=== PATIENT | male | born 1980 | race Caucasian/White ===

== ENCOUNTER → 2016-12-20 | Outpatient (CLI) | payer OTHER ==
[~2016-12-20] MED LIST: ALBU1AER9 INH; ALBUAER; CHOL1CAP57 PO; CHOL2000 PO; CITA10TA8 PO; CITA20TA9 PO; CLIN150C PO; CYAN1TAB4 SL; LEVE500T PO; LEVE500T13 PO; MOME6000; NSNN50; SILD1TAB11 PO
[2016-12-20 16:08] LABS: BLOOD UREA NITROGEN 14 mg/dl (7-18); CALCIUM 8.8 mg/dl (8.5-10.1); CARBON DIOXIDE 27 mmol/L (21-32); CHLORIDE 108 mmol/L (98-107); CREATININE 0.72 mg/dl (0.60-1.40); GLUCOSE 93 mg/dl (70-99); POTASSIUM 4.1 mmol/L (3.5-5.1); SODIUM 141 mmol/L (136-145)
== END | disposition home or self-care (01) ==
LOC: C.LAB 10:48
PROVIDERS: ATTEND Urology
DX: N52.9 Male erectile dysfunction, unspecified (principal)

== ENCOUNTER 2017-02-08 13:47 | Emergency (ER) | payer OTHER ==
[~2017-02-08] VITALS: Ht 165.1 cm; Wt 83.0 kg
[~2017-02-08 13:47] MED LIST changes: -ALBUAER; -CHOL1CAP57 PO; -CITA20TA9 PO; -CLIN150C PO; -LEVE500T13 PO; -MOME6000; -SILD1TAB11 PO
[2017-02-08 13:51] VITALS: BP 132/86; TEMP 37; Ht 165.1 cm; Wt 83.0 kg
[2017-02-08] MEDS ORDERED: XYLOCAINE 1%/SOD BICARB 20 ML VIAL INFIL ONE (14:00)
--- NOTE | 2017-02-08 14:32 | EMERGENCY ROOM VISIT NOTE ---
History First contact with patient: 13:54 Chief Complaint: LACERATION/CUT (NON-SUTURE) Stated Complaint: CUT ON THE RIGHT PALM Nursing Triage Summary: pt here with lac to right palm of hand from a piece of metal from a deep freezer. full rom of hand. History of Present Illness The patient is a 36 year old male who presents to the Emergency Room with complaints of right hand laceration. The patient was helping his father move, lifting a chest freezer with wet hands. The freezer slipped through his hand, cutting the heel of his palm. The patient does report moderate bleeding from the wound. The patient is [id number]. He rates his discomfort a 5 out of 10. Tetanus immunization is up-to-date. Review of Systems 6 system review was performed and was negative except for pertinent positives and negatives as indicated in history of present illness Past Medical/Surgical History Medical Problems: (1) Acute hepatitis C (2) Bronchitis (3) Chronic duodenal ulcer (4) Depression (5) heart disease (6) Hernia repair (7) Pulmonary emphysema (8) Seizure Family History Cancer Diabetes mellitus Gallbladder disease Heart disease Hypertension Kidney disease Kidney stones Seizures Stroke Social History Smoking Status: Never Smoker Alcohol Use: none Marital Status: Housing Status: lives with family Occupation Status: unemployed Current/Historical Medications Scheduled Albuterol Sulfate (Proair Hfa), 2 PUFFS INH QID PRN Cholecalciferol (Vitamin D3), 2,000 INTERUNIT PO WEEKLY Citalopram Hydrobromide (Celexa), 10 MG PO DAILY Levetiractam (Levetiracetam), 500 MG PO DAILY Mometasone Furoate (Nasal) (Nasonex), 2 SPRAY NA DAILY Miscellaneous Medications Cyanocobalamin (B-12), 500 MCG SL Allergies Coded Allergies: Latex (Verified Allergy, Unknown, RASH, 04/02/16) Penicillins (Unverified Allergy, Unknown, SWELLING/HIVES, 04/02/16) Physical Exam Vital Signs Date Time Temp Pulse Resp B/P (MAP) Pulse Ox O2 Delivery O2 Flow Rate FiO2 02/08/17 13:51 37.0 90 16 132/86 98 Room Air Physical Exam CONSTITUTIONAL: Healthy and well nourished. Alert and oriented X 3 with positive affect. She does not appear in any acute distress. HEENT: Normocephalic, atraumatic. Pupils equal, round and reactive. NECK: Full active range of motion without discomfort. MUSCULOSKELETAL: Examination of the right hand shows a curvilinear 3 cm laceration across the base of the thenar eminence. No active bleeding noted on exam. The patient is able to flex and extend the fingers. Capillary refill of the fingers is less than 2 seconds. INTEGUMENTARY: No rash or other significant dermatologic conditions noted. NEUROLOGIC: Right hand and fingers are sensory intact. Medical Decision & Procedures Medications Administered Medications (Trade) Dose Ordered Sig/Ama Route Start Time Stop Time Status Last Admin Dose Admin Lidocaine HCl (Buffered Lidocaine 1% Inj) 20 ml ONE ONCE INFIL 02/08/17 14:00 02/08/17 14:01 DC 02/08/17 14:00 20 ML Procedure Laceration repair was performed under local anesthesia after receiving verbal consent from the patient. Using buffered 1% lidocaine without epinephrine, good local anesthesia was administered. The peripheral tissue was then cleansed with iodine, then the wound was copiously pressure irrigated with 100 mL of normal saline. Exploration of the wound show mild intrusion into the underlying subcutaneous space. It is noted that the patient had no sensory deficit of the thumb. The wound was then approximated using 4-0 nylon simple interrupted sutures. Bacitracin dressing was applied. ED Course Patient history and physical exam were performed. Nurse's notes were reviewed. Laceration repair was performed under local anesthesia. The patient was provided additional verbal and written wound care instructions. Ice and elevation for swelling and pain. Ibuprofen or Tylenol if needed for additional pain relief. Suture removal in 12-14 days, or seek reevaluation sooner for any signs of wound infection. The patient denied any pain at the time of discharge , voiced understanding of all discharge instructions, and was happy with plan of care. Medical Decision Impression Primary Impression: Laceration of right hand Departure Information Dispostion Home / Self-Care Forms HOME CARE DOCUMENTATION FORM, IMPORTANT VISIT INFORMATION Patient Instructions My [facility] Additional Instructions Keep wound clean and dry. Do not allow any crusting or dried blood to accumulate on sutures. If this occurs, use a 1:1 solution of hydrogen peroxide/ water on a Q-tip to clean the wound. Use an antibiotic ointment for 3-4 days, then let wound dry. Suture removal in 12-14 days. Return sooner for any signs of infection (increasing redness, swelling, drainage). Ice and elevate for swelling and pain. Ibuprofen 600 mg and/or Tylenol 1000 mg every 6 hrs as needed for pain. Problem Qualifiers Primary Impression: Laceration of right hand Encounter type: initial encounter Foreign body presence: without foreign body Qualified Codes: S61.411A - Laceration without foreign body of right hand , initial encounter
[2017-02-08] MEDS ORDERED: SILD1TAB11 PO (14:43)
[2017-02-08 14:58] VITALS: PULSE 89; O2SAT 100
== END 2017-02-08 14:59 | disposition home or self-care (01) ==
LOC: C.EDB 13:49 → C.EDD 14:59
DX: S61.411A Laceration without foreign body of right hand, initial encounter (principal); W45.8XXA Other foreign body or object entering through skin, initial encounter; Y93.E6 Activity, residential relocation; F32.9 Major depressive disorder, single episode, unspecified; Z80.9 Family history of malignant neoplasm, unspecified; Z83.3 Family history of diabetes mellitus; Z82.49 Family history of ischemic heart disease and other diseases of the circulatory system; Z84.1 Family history of disorders of kidney and ureter; Z82.0 Family history of epilepsy and other diseases of the nervous system; Z82.3 Family history of stroke; Z79.899 Other long term (current) drug therapy

== ENCOUNTER 2017-02-17 20:32 | Emergency (ER) | payer OTHER ==
[~2017-02-17] VITALS: Ht 165.1 cm; Wt 85.3 kg
[~2017-02-17 20:32] MED LIST changes: +SILD1TAB11 PO
[2017-02-17 20:39] VITALS: Ht 165.1 cm; Wt 85.3 kg
[2017-02-17] MEDS ORDERED: CHOL1CAP57 PO (21:24)
[2017-02-17] MEDS ORDERED: CITA20TA9 PO (21:27)
[2017-02-17] MEDS ORDERED: LEVE500T13 PO (21:30)
[2017-02-17] MEDS ORDERED: OXYCODONE HCL IR 5 MG TAB (IMMEDIATE RELEASE) PO STA (21:37)
[2017-02-17] MEDS ORDERED: CLINDAMYCIN HCL 150 MG CAP PO ONE ×2 (21:45)
[2017-02-17] MEDS ORDERED: OXYCODONE IR HOME PACK PO ONE (21:45)
[2017-02-17] MEDS ORDERED: CLIN150C PO (21:55)
[2017-02-17 22:15] VITALS: BP 120/85; PULSE 86; TEMP 37; O2SAT 97
--- NOTE | 2017-02-17 22:28 | EMERGENCY ROOM VISIT NOTE ---
History Report prepared by Est[place]: [place] Under the Supervision of: Dr. Gera Clinton M.D. First contact with patient: 21:26 Chief Complaint: WOUND INFECTION Stated Complaint: RIGHT HAND PAIN - SWELLING AND REDNESS Nursing Triage Summary: Pt reports he was here on February 08 and got stitches. Now site is red, painful and swollen. It started today. History of Present Illness The patient is a 36 year old male who presents to the Emergency Room with complaints of persistent right hand pain for the past 1 day. He rates his discomfort as a 5/10 in severity. Movement worsens his pain and he notes he can barely move his right thumb because of his discomfort. He reports he got stitches on February 08 here at the ED after lacerating his left palm while trying to move a boat in the rain. Today the site became red, swollen and painful. 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 The patient denies any previous history of skin infections or boils. Pt denies LOC, headache, fevers, chills, diaphoresis, chest pain, breathing difficulties, nausea, vomiting, numbness, weakness, lymphadenopathy, rash, or other complaints. 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 A total of six systems were reviewed and were otherwise negative. Past Medical & Surgical Medical Problems: (1) Acute hepatitis C (2) Bronchitis (3) Chronic duodenal ulcer (4) Depression (5) heart disease (6) Hernia repair (7) Pulmonary emphysema (8) Seizure Family History Cancer Diabetes mellitus Gallbladder disease Heart disease Hypertension Kidney disease Kidney stones Seizures Stroke Social History Smoking Status: Former Smoker Alcohol Use: none Drug Use: none Marital Status: Housing Status: lives with family Occupation Status: unemployed Current/Historical Medications Scheduled Albuterol Sulfate (Proair Hfa), 2 PUFFS INH QID PRN Cholecalciferol (Vitamin D3), 1,000 UNITS PO WK Citalopram Hydrobromide (Celexa), 30 MG PO DAILY Clindamycin Hcl (Cleocin), 150 MG PO QID Cyanocobalamin (B-12), 1,000 MCG SL QAM Levetiracetam (Keppra), 500 MG PO BID Sildenafil Citrate (Viagra), 1 TAB PO PRN Scheduled PRN Mometasone Furoate (Nasal) (Nasonex), 2 SPRAY NA DAILY PRN for CONGESTION Allergies Coded Allergies: Latex (Verified Allergy, Unknown, RASH, 04/02/16) Penicillins (Unverified Allergy, Unknown, SWELLING/HIVES, 04/02/16) Physical Exam Vital Signs Date Time Temp Pulse Resp B/P (MAP) Pulse Ox O2 Delivery O2 Flow Rate FiO2 02/17/17 22:15 37.0 86 20 120/85 97 02/17/17 20:39 37.0 86 20 120/85 97 Room Air Physical Exam GENERAL: Awake, alert, well-appearing, in no distress HENT: Normocephalic, atraumatic. Oropharynx unremarkable. EYES: Normal conjunctiva. Sclera non-icteric. NECK: Supple. No nuchal rigidity. FROM. No JVD. RESPIRATORY: Clear to auscultation. CARDIAC: Regular rate, normal rhythm. Extremities warm and well perfused. Pulses equal. MUSCULOSKELETAL: Chest examination reveals no tenderness. No joint edema. NEURO: Normal sensorium. No sensory or motor deficits noted. SKIN: Swelling, tenderness and redness around incision on palm of right hand. Middle stitch removed and purulent discharge visualized. No rash or jaundice noted. Medical Decision & Procedures Medications Administered Medications (Trade) Dose Ordered Sig/Ama Route Start Time Stop Time Status Last Admin Dose Admin Clindamycin HCl (Cleocin Cap) 150 mg ONE ONCE PO 02/17/17 21:45 02/17/17 21:46 DC 02/17/17 22:17 150 MG Clindamycin HCl (Cleocin Cap) 150 mg ONE ONCE PO 02/17/17 21:45 02/17/17 21:46 DC 02/17/17 22:18 150 MG Oxycodone HCl (Roxicodone Immediate Rel Tab) 5 mg NOW STAT PO 02/17/17 21:37 02/17/17 21:39 DC 02/17/17 22:17 5 MG Oxycodone HCl (Roxicodone Immediate Rel 5MG Home Pack) 1 homepack UD ONCE PO 02/17/17 21:45 02/17/17 21:46 DC 02/17/17 22:18 1 HOMEPACK ED Course 2126: The patient was evaluated in room D3. A complete history and physical exam was performed. 2136: Oxycodone HCl 5 mg PO. 2144: Oxycodone HCl 1 homepack PO, Clindamycin HCl 150 mg PO, Clindamycin HCl 150 mg PO. 2154: I reevaluated the patient. He is feeling better. I discussed his results and discharge instructions and he verbalized complete understanding and agreement. Medical Decision Medication Reconciliation: I attest that I have personally reviewed the patient' s current medication list Blood pressure screening: Patient was found to have a slightly elevated blood pressure on screening, but I believe this is situational and does not require follow-up. The patient presented with swelling, redness, and pain on his right hand. Etiologies such as cellulitis, abscess, MRSA infection, dermatitis, drug eruption,necrotizing fasciitis, as well as others were entertained. The patient has no crepitus on examination. I did remove 2 of the stitches and expressed purulent material from the stitch sites. The wound is not completely healed. The patient noted some relief after the fluid was expressed. This was sent for culture. He will be started on clindamycin. He was given an OxyIR and and OxyIR home pack. I did advise him to come back to the emergency department in 2 days for a wound recheck or sooner if needed. I gave my usual and customary discussion regarding this issue. By the evaluation outlined above other emergent etiologies such as those listed in the differential, as well as others, were deemed relatively unlikely. The patient was educated about the findings as listed above. All questions were answered and the patient was pleased with the treatment. Return instructions were outlined and the patient was discharged in stable condition. The patient was referred to the Emergency Room for follow-up for a recheck of the current condition. Impression Primary Impression: Abscess of right hand Scribe Attestation The scribe's documentation has been prepared under my direction and personally reviewed by me in its entirety. I confirm that the note above accurately reflects all work, treatment, procedures, and medical decision making performed by me. Departure Information Dispostion Home / Self-Care Prescriptions Clindamycin Hcl (CLEOCIN) 150 Mg Cap 150 MG PO QID, #38 CAP Prov: Gera Clinton MD 02/17/17 Referrals Carmelo Arcos M.D. (PCP) Patient Instructions My [facility] Additional Instructions CELLULITIS INSTRUCTIONS: Clindamycin 150mg: Take two pills four times daily for 10 days for your infection. All antibiotics can cause diarrhea. If this occurs and you feel worse or it does not resolve in 1-2 days follow up with your doctor or return to the Emergency Department as this could be signs of serious underlying problems. Any medication can cause an allergic reaction, stop the pills immediately and return to the ER for rash, hives, breathing difficulties, or swelling. Ibuprofen(Motrin, Advil) may be used for fever or pain. Use 600mg every six hours as needed. Take with food. Avoid using more than 2400mg in a 24 hour period. Do not use 2400mg per day for more than three consecutive days without physician direction. Prolonged inappropriate use can lead to stomach upset or ulcers. (AND/OR) Acetaminophen(Tylenol) may be used for fever or pain. Use 1000mg every six hours as needed. Avoid using more than 4000mg in a 24 hour period. Oxycodone (OxyIR) 5mg: Take 1-2 pills every four hours as needed for breakthrough pain. Avoid alcohol, operating machinery or dangerous equipment, working on ladders or roofs, DRIVING, or situations where being under the influence may be dangerous. It is recommended to use a stool softener such as Colace, 100mg twice daily while taking this medication to avoid constipation. Warm compresses to the affected area 4 times daily for 15-20 minutes. Rest and drink plenty of fluids. Continue current medications. Return to the ER for severe pain, persistent fevers, spreading redness, or any worsening of your condition. Follow up with the Emergency Room in 2 days for a recheck of the current condition.
--- NOTE | 2017-02-19 11:05 | Pharmacy Progress Note ---
ED Pharmacist Culture FollowUp Date of Service: Feb 19, 2017. Patient was sent home with a prescription for Clindamycin 150mg PO QID x 9.5 days (after receiving Clinda in the ER as well), which should cover the MRSA growing from the patient's right hand wound culture. The patient's R hand had abscess from recent laceration. Provider had removed a few stitches and expressed purulent material, placed the patient on clindamycin and the patient was to return to the ER today for f/u of wound. No action required at this time.
== END 2017-02-17 22:16 | disposition home or self-care (01) ==
LOC: C.EDB 20:33 → C.EDD 22:16
DX: L02.511 Cutaneous abscess of right hand (principal); F32.9 Major depressive disorder, single episode, unspecified; J43.9 Emphysema, unspecified; Z80.9 Family history of malignant neoplasm, unspecified; Z83.3 Family history of diabetes mellitus; Z82.49 Family history of ischemic heart disease and other diseases of the circulatory system; Z84.1 Family history of disorders of kidney and ureter; Z82.0 Family history of epilepsy and other diseases of the nervous system; Z82.3 Family history of stroke; Z87.891 Personal history of nicotine dependence; Z79.899 Other long term (current) drug therapy

== ENCOUNTER 2017-02-19 11:12 | Emergency (ER) | payer OTHER ==
[~2017-02-19] VITALS: Ht 165.1 cm; Wt 82.6 kg
[~2017-02-19 11:12] MED LIST changes: +CHOL1CAP57 PO; -CHOL2000 PO; -CITA10TA8 PO; +CITA20TA9 PO; +CLIN150C PO; -LEVE500T PO; +LEVE500T13 PO
[2017-02-19 11:17] VITALS: TEMP 36.5; Ht 165.1 cm; Wt 82.6 kg
[2017-02-19] MEDS ORDERED: ALBUAER (11:33)
[2017-02-19] MEDS ORDERED: MOME6000 (11:33)
--- NOTE | 2017-02-19 12:23 | EMERGENCY ROOM VISIT NOTE ---
ED Visit Note First contact with patient: 11:37 CHIEF COMPLAINT: Suture removal This patient returns to the ED today for removal of sutures that were placed 12 days ago. He was seen two days ago with concern for wound infection, had a few of the sutures removed at that time and was placed on clindamycin. He states he has been taking the clindamycin as prescribed and has not missed any doses. Patient reports improvement in the swelling, redness and drainage from the wound. He denies any fevers or chills, or feeling ill. The patient feels like the laceration is healing well. REVIEW OF SYSTEMS: Head: No headache, injury or neck pain. Skin: No rash, new lesions, or masses. General: No fever or chills, fatigue, loss of appetite , or significant recent weight gain or loss. PMH: The patient is healthy; there is no significant medical or surgical history. SOCIAL HISTORY: Patient lives at home. PHYSICAL EXAM: Vital Signs: Reviewed Nurse's notes. There is a sutured wound on the palmar aspect of the right hand, with mild erythema and tenderness to palpation, no purulent drainage, appears to be healing well. Per the patient, the erythema and pain have greatly improved since being placed on antibiotics. Normal strength and sensation in the hand and fingers. EMERGENCY DEPARTMENT COURSE: The sutures were removed without any difficulty and there was minimal separation of the wound edges. The wound was irrigated with saline, cleansed and bandaged with bacitracin and a sterile dressing. Patient was instructed to follow up with his PCP as needed, to continue taking the clindamycin for the full course, and to return for any worsening symptoms. Patient verbalized understanding and was discharged home in stable condition. Problem List Medical Problems: (1) Acute hepatitis C Status: Chronic (2) Bronchitis Status: Resolved (3) Chronic duodenal ulcer Status: Chronic (4) Depression Status: Chronic (5) Hernia repair Status: Resolved (6) Pulmonary emphysema Status: Chronic (7) Seizure Status: Chronic Current/Historical Medications Scheduled Cholecalciferol (Vitamin D3), 1,000 UNITS PO WK Citalopram Hydrobromide (Celexa), 30 MG PO DAILY Clindamycin Hcl (Cleocin), 150 MG PO QID Cyanocobalamin (B-12), 1,000 MCG SL QAM Levetiracetam (Keppra), 500 MG PO BID Sildenafil Citrate (Viagra), 1 TAB PO PRN Miscellaneous Medications Albuterol Sulfate (Proventil Hfa) Mometasone Furoate (Nasal) (Mometasone Furoate) Allergies Coded Allergies: Latex (Verified Allergy, Unknown, RASH, 02/19/17) Penicillins (Unverified Allergy, Unknown, SWELLING/HIVES, 02/19/17) Vital Signs Date Time Temp Pulse Resp B/P (MAP) Pulse Ox O2 Delivery O2 Flow Rate FiO2 02/19/17 12:30 60 117/69 97 02/19/17 11:17 36.5 76 18 122/79 97 Room Air Departure Information Impression Primary Impression: Encounter for wound re-check Dispostion Home / Self-Care Condition GOOD Referrals Carmelo Arcos M.D. (PCP) Patient Instructions My [facility] Additional Instructions Keep wound clean and dry. Do not allow any crusting or dried blood to accumulate on the wound edges. If this occurs, use a 1:1 solution of hydrogen peroxide/water on a Q-tip to clean the wound. Use an antibiotic ointment and gauze dressing for the next 3-4 days, then let wound dry and open to air. Ibuprofen 600 mg and Tylenol 1000 mg every 6-8 hrs as needed for pain. Please seek immediate medical attention for any signs of worsening infection ( increasing redness, swelling, pus drainage, streaking up the arm, fever/chills).
[2017-02-19 12:30] VITALS: BP 117/69; PULSE 60; O2SAT 97
== END 2017-02-19 12:31 | disposition home or self-care (01) ==
LOC: C.EDB 11:13
DX: S61.411D Laceration without foreign body of right hand, subsequent encounter (principal); X58.XXXD Exposure to other specified factors, subsequent encounter; B18.2 Chronic viral hepatitis C; F32.9 Major depressive disorder, single episode, unspecified; Z82.0 Family history of epilepsy and other diseases of the nervous system; Z79.899 Other long term (current) drug therapy

== ENCOUNTER 2017-11-01 14:53 | Emergency (ER) | payer OTHER ==
[~2017-11-01] VITALS: Ht 165.1 cm; Wt 89.0 kg
[~2017-11-01 14:53] MED LIST changes: -ALBU1AER9 INH; +ALBUAER; -CLIN150C PO; +MOME6000; -NSNN50
[2017-11-01 15:01] VITALS: TEMP 37.8; Ht 165.1 cm; Wt 89.0 kg
[2017-11-01] MEDS ORDERED: ALBUT/IPRATROP 3MG/0.5MG NEB 3 ML VIAL INH STA (15:16)
[2017-11-01] MEDS ORDERED: VNTHFA/IN INH ×2 (15:20→15:43)
[2017-11-01] MEDS ORDERED: AZITTAB PO (15:20)
[2017-11-01] MEDS ORDERED: METH4PAK PO (15:20)
--- NOTE | 2017-11-01 15:26 | EMERGENCY ROOM VISIT NOTE ---
History First contact with patient: 15:03 Chief Complaint: COUGH Stated Complaint: BEEN SICK FOR PAST COUPLE DAYS WITH COUGHING Nursing Triage Summary: c/o cough, runny nose and fever at home History of Present Illness The patient is a 37 year old male who presents to the Emergency Room with his with complaints of cough, runny nose, sore throat and headache. The patient reports that he has been taking NyQuil and DayQuil without relief. The patient reports that he knows he is getting sick when he cannot drink coffee or chew tobacco. The patient does have a history of asthma. He reports that he cannot take ibuprofen or Tylenol because of a history of hepatitis C and kidney disease. The patient denies history of diabetes. He rates his overall discomfort a 10 out of 10. The patient denies any recent sick contacts. Review of Systems 10 system review was performed and was negative except for pertinent positives and negatives as indicated in history of present illness Past Medical/Surgical History Medical Problems: (1) Acute hepatitis C (2) Bronchitis (3) Chronic duodenal ulcer (4) Depression (5) heart disease (6) Hernia repair (7) Pulmonary emphysema (8) Seizure Family History Cancer Diabetes mellitus Gallbladder disease Heart disease Hypertension Kidney disease Kidney stones Seizures Stroke Social History Smoking Status: Former Smoker Alcohol Use: none Drug Use: none Marital Status: Housing Status: lives with family Occupation Status: unemployed Current/Historical Medications Scheduled Albuterol Hfa (Ventolin Hfa), 2 PUFFS INH QID Azithromycin (Zithromax Z-Maddy), 0 PO UD Cholecalciferol (Vitamin D3), 1,000 UNITS PO WK Citalopram Hydrobromide (Celexa), 30 MG PO DAILY Cyanocobalamin (B-12), 1,000 MCG SL QAM Levetiracetam (Keppra), 500 MG PO BID Methylprednisolone (Medrol Dosepak), 0 PO DAILY Sildenafil Citrate (Viagra), 1 TAB PO PRN Miscellaneous Medications Albuterol Sulfate (Proventil Hfa) Mometasone Furoate (Nasal) (Mometasone Furoate) Physical Exam Vital Signs Date Time Temp Pulse Resp B/P (MAP) Pulse Ox O2 Delivery O2 Flow Rate FiO2 11/01/17 15:01 37.8 107 18 136/75 96 Room Air Physical Exam CONSTITUTIONAL: Healthy and well nourished. Alert and oriented X 3 with positive affect. Patient does not appear toxic. He does have a mild nonproductive cough. HEENT: Normocephalic, atraumatic. Pupils equal, round and reactive. Ears and nares are clear. No scleral icterus or conjunctival injection/pallor. OROPHARYNX: Mild posterior pharyngeal erythema without tonsillar hypertrophy or exudates. NECK: Full active range of motion without discomfort. No nuchal rigidity. RESPIRATORY: Clear to auscultation bilaterally with no wheezing, crackles, rhonchi or stridor. CARDIOVASCULAR: Mildly tachycardic with no murmurs, rubs or gallops. GASTROINTESTINAL: Bowel sounds present in all quadrants. Soft and nontender to palpation. MUSCULOSKELETAL: Full range of motion of all joints without discomfort. INTEGUMENTARY: No rash or other significant dermatologic conditions noted. HEMATOLOGIC: No jaundice, ecchymosis or petechiae noted. NEUROLOGIC: No focal neurologic deficits noted. Medical Decision & Procedures ED Course Patient history and physical exam were performed. Nurse's notes were reviewed. Vital signs were reviewed, showing an oral temperature of 37.8C. Patient is also mildly tachycardic at 107 bpm. The patient is otherwise normotensive and with a normal O2 saturation on room air. Physical exam is suggestive of viral upper respiratory infection. The patient will be treated with a Z-Maddy and Medrol Dosepak. The patient reports that he does have an albuterol inhaler at home, but does not know if it is in date. He will also be provided a prescription for an additional Ventolin metered-dose inhaler. The patient was administered a unit dose DuoNeb treatment while in the emergency department, and reported feeling better at the time of discharge. Medical Decision Medication Reconcilliation Current Medication List: was personally reviewed by tn Blood Pressure Screening Patient's blood pressure: Normal blood pressure Impression Primary Impression: Acute bronchitis Additional Impression: History of asthma Departure Information Dispostion Home / Self-Care Prescriptions Albuterol Hfa (VENTOLIN HFA) 200 Puffs/75928 Mcg Aers 2 PUFFS INH QID, #1 INHALER Prov: Nilo Yadav PA 11/01/17 Methylprednisolone (MEDROL DOSEPAK) 4 Mg Maddy 0 PO DAILY, #1 PKT Prov: Nilo Yadav PA 11/01/17 Azithromycin (ZITHROMAX Z-MADDY) 250 Mg Tab 0 PO UD, #1 PKT 2 TABS DAY 1, THEN 1 TAB DAILY FOR 4 DAYS Prov: Nilo Yadav PA 11/01/17 Forms HOME CARE DOCUMENTATION FORM, IMPORTANT VISIT INFORMATION Patient Instructions My [facility] Additional Instructions Complete all Zithromax antibiotics as prescribed. Take Medrol Dosepak as prescribed. Follow-up with your family doctor if symptoms are not improving within the next 5-7 days. Problem Qualifiers Primary Impression: Acute bronchitis Bronchitis organism: unspecified organism Qualified Codes: J20.9 - Acute bronchitis, unspecified
[2017-11-01 16:04] VITALS: BP 126/78; PULSE 92; O2SAT 95
== END 2017-11-01 16:08 | disposition home or self-care (01) ==
LOC: C.EDB 14:54 → C.EDC 16:08
DX: J20.9 Acute bronchitis, unspecified (principal); J02.9 Acute pharyngitis, unspecified; R51 Headache; R09.81 Nasal congestion; G40.909 Epilepsy, unspecified, not intractable, without status epilepticus; F32.9 Major depressive disorder, single episode, unspecified; J45.909 Unspecified asthma, uncomplicated; B19.20 Unspecified viral hepatitis C without hepatic coma; Z79.899 Other long term (current) drug therapy; Z87.891 Personal history of nicotine dependence; Z82.0 Family history of epilepsy and other diseases of the nervous system; Z82.3 Family history of stroke; Z82.49 Family history of ischemic heart disease and other diseases of the circulatory system; Z83.3 Family history of diabetes mellitus; Z83.79 Family history of other diseases of the digestive system; Z84.1 Family history of disorders of kidney and ureter